=== PATIENT | female | born 1960 | race Caucasian/White ===

== ENCOUNTER 2021-02-08 07:37 | Emergency (ER) | payer MEDICARE ==
[~2021-02-08] VITALS: Ht 172.7 cm; Wt 74.3 kg
[2021-02-08 07:42] VITALS: BP 122/55
--- NOTE | 2021-02-08 09:32 | NUR ---
fusion analyst: pt from lobby to room 4
--- NOTE | 2021-02-08 10:02 | NUR ---
ERP IN TO SEE PT NOW. PT UPDATED ON XR RESULTS AND POC. PT REPORTING THAT SHE CAN'T USE CRUTCHES D/T BALANCE ISSUES.
--- NOTE | 2021-02-08 10:40 | NUR ---
R POSTERIOR LEG SPLINT APPLIED BY MEDICAL RECORD TRANSCRIBER, CMS INTACT. PT REFUSED CRUTCHES. WALKER PROVIDED. PT DECLINED PAIN MEDS AT THIS TIME. D/C INSTRUCTIONS, MEDS & F/U APPT RV'WD WITH PT; PT TO TRY TO GET F/U APPT AT [facility] THIS WEEK BEFORE GOING BACK HOME TO [place]. WALKER PROVIDED TO PT. PT ASSISTED OUT OF ED VIA WC WITH , WILL HAVE WHEELCHAIR AT THEIR HOTEL ALSO.
== END 2021-02-08 10:48 | disposition home or self-care (01) ==
LOC: ED 10:29
DX: S92.341A Displaced fracture of fourth metatarsal bone, right foot, initial encounter for closed fracture (principal); S92.331A Displaced fracture of third metatarsal bone, right foot, initial encounter for closed fracture; S92.321A Displaced fracture of second metatarsal bone, right foot, initial encounter for closed fracture; S82.841A Displaced bimalleolar fracture of right lower leg, initial encounter for closed fracture; W18.30XA Fall on same level, unspecified, initial encounter; Y93.89 Activity, other specified; Y92.89 Other specified places as the place of occurrence of the external cause; Y99.8 Other external cause status
CPT/HCPCS: 29515; 99283